=== PATIENT | female | born 2000 | race African-American/Black ===

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

== ENCOUNTER 2024-06-18 04:16 | Observation (INO) | payer MEDICAID ==
[~2024-06-18] VITALS: Ht 162.6 cm; Wt 82.1 kg
[2024-06-18] MEDS: TERBUTALINE SULFATE 1 MG/ML 1ML VIAL SC SCH (04:44)
[2024-06-18] MEDS: LACTATED RINGER'S 1,000 ML IV ONE (04:46)
[2024-06-18 05:11] LABS: Urine Bacteria FEW /hpf (None Seen); Urine Blood TRACE /uL (Negative); Urine Budding Yeast FEW /hpf (None Seen); Urine Clarity Turbid (Clear); Urine Protein, UAD Negative (Negative); Urine Specific Gravity 1.005 (1.001-1.035); Urine Urobilinogen Normal (Negative); Urine WBC 12 /hpf (0 - 5); Urine pH 6.5 (5.0-9.0)
[2024-06-18 05:12] LABS: Urine Color STRAW (Yellow)
[2024-06-18] MEDS ORDERED: ALBU108A5 IN (05:17)
[2024-06-18] MEDS: LACTATED RINGER'S 1,000 ML IV SCH (06:03)
[2024-06-18] MEDS ORDERED: BETAMETHASONE ACET (30mg/5ml) 5ml Vial 6mg/ml IM SCH (10:00)
--- NOTE | 2024-06-18 16:08 | DVHDS2 ---
Physician Discharge Progress N Final Diagnosis: ucs Operations or Procedures: Operations or Procedures nst.,sono Condition on Discharge: Good Disposition: Home Discharge Instructions: Diet: Regular Activity: Light activity Medications: na Follow Up Care: Specialist: 2d Discharge Statement: "Patient was advised to return to the ER or call 911 if any headaches, dizziness, shortness of breath, chest pain, abdominal pain, bleeding, fevers, or worsening of medical condition. Patient was counseled about treatment plan, medications, possible side effects, patientverbalized understanding. All questions were answered to the best of my ability. This discharge took greater then 30 minutes in planning, reviewing documentation, counseling the patient, and discussing with other team members." DORA BEE DO Jun 18, 2024 16:08
== END 2024-06-18 07:02 | disposition home or self-care (01) ==
LOC: LDRP 04:16
PROVIDERS: ADMIT Obstetrics & Gynecology; ATTEND Obstetrics & Gynecology
DX: O62.9 Abnormality of forces of labor, unspecified (principal); O26.893 Other specified pregnancy related conditions, third trimester; R10.9 Unspecified abdominal pain; O99.891 Other specified diseases and conditions complicating pregnancy; M54.9 Dorsalgia, unspecified; Z3A.32 32 weeks gestation of pregnancy; Z79.899 Other long term (current) drug therapy; Z91.018 Allergy to other foods
CPT/HCPCS: 59025; 81001; 81002; 96360; 96361; 96372; G0378; J3105; 96366